=== PATIENT | female | born 2000 | race Two or more races ===

== ENCOUNTER → 2020-08-16 | Outpatient (CLI) | payer BC ==
[2020-08-16 10:07] LABS: Basophils # (auto) 0.1 10 ^3/uL (0-0.2); Basophils % (auto) 1.3 % (0.0-2.0); Eosinophils # (auto) 0.5 10 ^3/uL (0-0.8); Eosinophils % (auto) 6.9 % (0.0-7.0); Hematocrit 41.1 % (36.0-46.0); Hemoglobin 13.8 g/dL (12.2-16.2); Lymphocytes # (auto) 3.4 10 ^3/uL (0.4-5.4); Lymphocytes % (auto) 43.7 % (10.0-50.0); Mean Corpuscular Hemoglobin 30.7 pg (28.0-32.0); Mean Corpuscular Hgb Conc. 33.7 g/dL (32.0-36.0); Monocytes # (auto) 0.7 10 ^3/uL (0-1.3); Monocytes % (auto) 8.4 % (0.0-12.0); Neutrophils # (auto) 3.1 10 ^3/uL (1.6-8.6); Neutrophils % (auto) 39.7 % (37.0-80.0); Nucleated Red Blood Cells % 0.1 %; Platelet Count (auto) 301 10^3/uL (140-450); Red Blood Cells 4.51 10^6/uL (4.0-5.20); White Blood Cell 7.8 10^3/uL (4.4-10.8)
[2020-08-16 10:43] LABS: Potassium 4.3 mmol/L (3.5-5.1)
[2020-08-16 10:45] LABS: Free T4 (Free Thyroxine) 1.07 ng/dL (0.89-1.76); T3 Total 1.03 ng/mL (0.60-1.81)
[2020-08-16 10:46] LABS: Follicle Stimulating Hormone 4.67 IU/L (SEE BELOW); Leuteinizing Hormone 6.9 IU/L
[2020-08-16 10:51] LABS: Albumin 3.6 g/dL (3.4-5.0); BUN/Creatinine Ratio 13.5; Bilirubin, Total 0.2 mg/dL (0.2-1.0); Total Protein 7.6 g/dL (6.4-8.2)
== END | disposition home or self-care (01) ==
LOC: LAB 09:22
PROVIDERS: ATTEND Internal Medicine
DX: Z00.00 Encounter for general adult medical examination without abnormal findings (principal); E66.9 Obesity, unspecified; Z83.3 Family history of diabetes mellitus
CPT/HCPCS: 36415; 80053; 80061; 82670; 83001; 83002; 83036; 84439; 84480; 85025

== ENCOUNTER 2020-12-14 17:07 | Emergency (ER) | payer BC ==
[~2020-12-14] VITALS: Ht 175.3 cm; Wt 115.7 kg
[2020-12-14 20:30] VITALS: BP 127/75
== END 2020-12-14 20:46 | disposition home or self-care (01) ==
LOC: ER 17:07
DX: N61.0 Mastitis without abscess (principal); E66.9 Obesity, unspecified; Z68.37 Body mass index [BMI] 37.0-37.9, adult

== ENCOUNTER → 2022-02-13 | Outpatient (CLI) | payer BC ==
[2022-02-13 15:53] LABS: Urine Bacteria NONE SEEN /hpf (None Seen); Urine Blood Negative /uL (Negative); Urine Specific Gravity 1.019 (1.001-1.035); Urine WBC <1 /hpf (0 - 5)
== END | disposition home or self-care (01) ==
LOC: LAB 15:11
PROVIDERS: ATTEND Internal Medicine
DX: N39.0 Urinary tract infection, site not specified (principal)
CPT/HCPCS: 81001; 87086

== ENCOUNTER → 2022-05-31 | Outpatient (CLI) | payer BC | END | disposition home or self-care (01) | LOC: LAB 10:31 | PROVIDERS: ATTEND Obstetrics & Gynecology | DX: N72 Inflammatory disease of cervix uteri (principal); R87.612 Low grade squamous intraepithelial lesion on cytologic smear of cervix (LGSIL); R87.810 Cervical high risk human papillomavirus (HPV) DNA test positive; N85.8 Other specified noninflammatory disorders of uterus | CPT/HCPCS: 88302 ==

== ENCOUNTER → 2023-02-12 | Outpatient (CLI) | payer BC ==
[2023-02-13 08:06] LABS: RPR Non Reactive (Non Reactive)
[2023-02-13 22:06] LABS: Chlamydia Trachomatis, NAA Negative (Negative); Neisseria gonorrhoeae, NAA Negative (Negative)
== END | disposition home or self-care (01) ==
LOC: LAB 15:55
DX: Z20.2 Contact with and (suspected) exposure to infections with a predominantly sexual mode of transmission (principal)
CPT/HCPCS: 36415; 86592; 86703; 86705; 86709; 86803; 87340

== ENCOUNTER → 2023-10-12 | Outpatient (CLI) | payer BC ==
[2023-10-12 16:01] LABS: Triglycerides 96 mg/dL (< 150)
[2023-10-12 16:02] LABS: LDL Cholesterol 178 mg/dL (< 100)
[2023-10-12 16:04] LABS: Cholesterol 225 mg/dL (< 200); HDL Cholesterol 40 mg/dL (40-59)
== END | disposition home or self-care (01) ==
LOC: LAB 15:01
PROVIDERS: ATTEND Internal Medicine
DX: E72.9 Disorder of amino-acid metabolism, unspecified (principal); E55.9 Vitamin D deficiency, unspecified
CPT/HCPCS: 36415; 80061; 83036; 84443

== ENCOUNTER → 2024-02-13 | Outpatient (CLI) | payer MEDICAID ==
[2024-02-13 11:01] LABS: LDL Cholesterol 157 mg/dL (< 100)
[2024-02-13 11:02] LABS: Cholesterol 216 mg/dL (< 200); Triglycerides 188 mg/dL (< 150)
[2024-02-13 11:03] LABS: Free T4 (Free Thyroxine) 1.11 ng/dL (0.89-1.76)
[2024-02-13 11:04] LABS: Free T3 3.03 pg/mL (2.3-4.2); HDL Cholesterol 42 mg/dL (40-59)
== END | disposition home or self-care (01) ==
LOC: LAB 09:48
PROVIDERS: ATTEND Internal Medicine
DX: R79.89 Other specified abnormal findings of blood chemistry (principal); E78.5 Hyperlipidemia, unspecified
CPT/HCPCS: 36415; 80061; 84439; 84443; 84481